=== PATIENT | male | born 1995 | race Caucasian/White ===

== ENCOUNTER 2018-04-20 16:04 | Emergency (ER) | payer OTHER ==
--- NOTE | 2018-04-20 18:34 | EDM.PDOC ---
ED HPI GENERAL MEDICAL PROBLEM - General Chief Complaint: Lower Extremity Injury/Pain Stated Complaint: NEED TO HAVE A X-RAY ON RIGHT LEG Time Seen by Provider: 04/20/18 16:36 Source of Information: Reports: Patient, RN Notes Reviewed - History of Present Illness INITIAL COMMENTS - FREE TEXT/NARRATIVE: Patient has been referred here from [place] [facility] for evaluation of injury to his right lower leg. Work a large and heavy valve unit tipped and fell striking his right leg. States he was trying to get out of the way as it "tipped over. For he did not take the full weight of the units but the unit that fell against his leg weighed over 2000 pounds. He does have fairly severe pain of the right mid leg with any type of motion or with any attempted weightbearing. No distal numbness or tingling at time of my exam. No other pain or injury from this incident. Treatments PRINT SHOP ASSISTANT: Reports: Other (see below) Other Treatments PRINT SHOP ASSISTANT: none Right Lower Leg Pain Score (Numeric/FACES): 9 - Related Data Allergies Allergy/AdvReac Type Severity Reaction Status Date / Time No Known Allergies Allergy Verified 04/20/18 16:21 Home Meds: Home Meds . [No Known Home Meds] 04/20/18 [History] Past Medical History - Past Health History Medical/Surgical History: Denies Medical/Surgical History Social & Family History - Tobacco Use Smoking Status *Q: Never Smoker - Caffeine Use Caffeine Use: Reports: Energy Drinks, Soda - Recreational Drug Use Recreational Drug Use: No Review of Systems - Review of Systems Review Of Systems: See Below Eyes: Reports: No Symptoms Mouth/Throat: Reports: No Symptoms Respiratory: Denies: Shortness of Breath, Pleuritic Chest Pain Cardiovascular: Denies: Chest Pain GI/Abdominal: Denies: Nausea, Vomiting Musculoskeletal: Reports: Leg Pain (Right lower mid leg) Skin: Reports: Other (Abrasion injury right lower mid leg) ED EXAM, GENERAL - Physical Exam Exam: See Below General Appearance: Alert, Mild Distress Head: Atraumatic Neck: Supple, Full Range of Motion Respiratory/Chest: No Respiratory Distress, Lungs Clear, Normal Breath Sounds Cardiovascular: Regular Rate, Rhythm Extremities: Leg Pain (There is moderate localized tenderness of the right anterior mid lower leg. There is a superficial longitudinal abrasion. I'll localized swelling. Leg is nontender posteriorly. We'll and foot are all nontender. No visible deformity. Distal neurovascular which are intact) Neurological: Alert, Oriented, No Motor/Sensory Deficits Skin Exam: Warm, Dry, Normal Color Course - Vital Signs Last Recorded V/S: Last Vital Signs Temp 99.7 F 04/20/18 16:20 Pulse 85 04/20/18 18:35 Resp 18 04/20/18 18:35 BP 134/80 04/20/18 18:35 Pulse Ox 98 04/20/18 18:35 - Orders/Labs/Meds Orders: Active Orders 24 hr Category Date Time Status Tibia Fibula Rt [CR] Stat Exams 04/20/18 16:43 Taken - Re-Assessments/Exams Free Text/Narrative Re-Assessment/Exam: 04/20/18 20:40 X-rays of leg were negative for fracture. Discharge instructions as documented. I did discuss with patient and his father the danger of compartment syndrome from this type of injury, signs and symptoms to watch for. At this point swelling is not to the point of showing evidence for that but realizing this could change. Departure - Departure Time of Disposition: 18:29 Disposition: Home, Self-Care 01 Condition: Fair Clinical Impression: Contusion of leg, right Qualifiers: Encounter type: initial encounter Qualified Code(s): S80.11XA - Contusion of right lower leg, initial encounter - Discharge Information Instructions: Contusion Referrals: PCP,None [Primary Care Provider] - Forms: ED Department Discharge Additional Instructions: Rest and elevate leg as much as possible when you can,, crutches, with that you may do light duty work as tolerated. He may take Advil or ibuprofen 800 mg 2-3 times daily, you may take Tylenol in between doses if needed for extra pain relief. Follow-up with Occupational health for recheck in 3-4 days, return to ED as needed, especially if you're foot and ankle become tremendously painful or swollen or if your leg becomes extremely painful or swollen. - My Orders Last 24 Hours: My Active Orders 04/20/18 16:43 Tibia Fibula Rt [CR] Stat - Assessment/Plan Last 24 Hours: My Active Orders 04/20/18 16:43 Tibia Fibula Rt [CR] Stat
== END 2018-04-20 18:35 | disposition home or self-care (01) ==
LOC: JD.ED 16:04
DX: S80.11XA Contusion of right lower leg, initial encounter (principal); W20.8XXA Other cause of strike by thrown, projected or falling object, initial encounter; Y99.0 Civilian activity done for income or pay
CPT/HCPCS: 73590-RT; 99283